=== PATIENT | male | born 1990 | race American Indian/Alaskan Native ===

== ENCOUNTER 2017-11-12 14:00 | Emergency (ER) | payer OTHER ==
[2017-11-12] MEDS ORDERED: ZOFRAN ONE (14:08)
[2017-11-12] MEDS ORDERED: VERSED IV ONE (14:08)
[2017-11-12] MEDS ORDERED: NACL 0.9% 1000 ML 1,000 ML IV ONE ×3 (14:09→15:53)
[2017-11-12] MEDS: VERSED IV NR ×2 (14:12→15:30)
[2017-11-12 14:38] LABS: Basophils % (Auto) 0.4 % (0.0-1.8); Eosinophils % (Auto) 0.1 % (0.0-4.3); Hemoglobin 15.9 gm/dl (11.8-15.2); Lymphocytes # (Auto) 0.8 K/mm3 (1.2-5.4); Lymphocytes % (Auto) 8.1 % (13.4-35.0); Mean Corpuscular HGB Conc 35 % (32-34); Mean Corpuscular Hemoglobin 31 pg (28-32); Mean Corpuscular Volume 90 fl (84-94); Monocytes # (Auto) 0.8 K/mm3 (0.0-0.8); Monocytes % (Auto) 7.8 % (0.0-7.3); Platelet Count 259 K/mm3 (140-440); Red Blood Count 5.14 M/mm3 (3.65-5.03); Red Cell Distribution Width 13.2 % (13.2-15.2)
[2017-11-12 14:50] LABS: INR 1.02 (0.87-1.13)
[2017-11-12 14:51] LABS: Partial Thromboplastin Time 30.6 Sec. (24.2-36.6)
--- NOTE | 2017-11-12 14:54 | Emergency Department Report ---
ED General Adult HPI - General Stated complaint: OVERDOSE/MH Time Seen by Provider: 11/12/17 14:07 Source: police, EMS Mode of arrival: Stretcher Limitations: No Limitations - History of Present Illness Initial comments: Patient was found by the [facility] with multi drug paraphernalia. They state he was eating some green leaves. Apparently he was acting somewhat delirious and was transported to this facility for medical evaluation. Upon arrival the patient was agitated and did require medication. He admitted to a mental health history. Later he told the nurse that he wanted to kill himself at the assisted. He stated that he just wanted to go to the assisted. He has no specific complaint. -: minutes(s), hour(s) - Related Data Home Medications Medication Instructions Recorded Confirmed Last Taken Unobtainable 11/12/17 11/12/17 Unknown Allergies Allergy/AdvReac Type Severity Reaction Status Date / Time methylphenidate Allergy Unknown Verified 11/12/17 14:45 [From Ritalin] ED Review of Systems ROS: Stated complaint: OVERDOSE/MH Other details as noted in HPI Comment: Unobtainable due to pts medical conditions (agitated and somewhat delirious but does not complain of pain shortness of breath or any other specific symptoms) ED Past Medical Hx - Past Medical History Previous Medical History?: Yes Hx Psychiatric Treatment: Yes Hx Asthma: Yes Additional medical history: ADHD, schziophernia, bipolar - Social History Smoking Status: Unknown if ever smoked Substance Use Type: Cocaine, Marijuana, Other - Medications Home Medications: Home Medications Medication Instructions Recorded Confirmed Last Taken Type Unobtainable 11/12/17 11/12/17 Unknown History ED Physical Exam - General Limitations: Altered Mental Status General appearance: alert, in no apparent distress - Head Head exam: Present: atraumatic, normocephalic - Eye Eye exam: Present: normal appearance, PERRL, EOMI. Absent: scleral icterus - ENT ENT exam: Present: mucous membranes moist - Neck Neck exam: Present: normal inspection. Absent: tenderness, meningismus - Respiratory Respiratory exam: Present: normal lung sounds bilaterally. Absent: respiratory distress - Cardiovascular Cardiovascular Exam: Present: regular rate, normal rhythm. Absent: systolic murmur, diastolic murmur, rubs, gallop - GI/Abdominal GI/Abdominal exam: Present: soft, normal bowel sounds. Absent: distended, tenderness, guarding, rebound, rigid - Rectal Rectal exam: Present: deferred - Extremities Exam Extremities exam: Present: normal inspection, full ROM, normal capillary refill. Absent: tenderness, calf tenderness - Back Exam Back exam: Present: normal inspection - Neurological Exam Neurological exam: Present: alert, oriented X3, CN II-XII intact. Absent: motor sensory deficit - Psychiatric Psychiatric exam: Present: agitated, anxious - Skin Skin exam: Present: warm, dry, intact, normal color. Absent: rash ED Course Vital Signs 11/12/17 11/12/17 11/12/17 13:54 14:00 14:08 Temperature 97.3 F L Pulse Rate 98 H 101 H Respiratory 21 Rate Blood Pressure 130/87 O2 Sat by Pulse 98 97 Oximetry 11/12/17 11/12/17 11/12/17 14:16 14:30 15:40 Temperature Pulse Rate 78 77 105 H Respiratory 8 L 44 H 20 Rate Blood Pressure 127/64 127/69 130/76 O2 Sat by Pulse 88 97 Oximetry - Reevaluation(s) Reevaluation #1: Given IV fluid. Multiple re-exams. The patient states that he is ready to go. He is awake alert and oriented 4. I spoke to the officer about his suicidal gesture. They are aware and will put him under suicide watch. They do have a medical infirmary and a physician. He is appropriate for transfer to the assisted. 11/12/17 18:09 ED Medical Decision Making - Lab Data Result diagrams: 11/12/17 14:22 11/12/17 14:22 Laboratory Results - last 24 hr 11/12/17 11/12/17 14:22 14:22 WBC 9.7 RBC 5.14 H Hgb 15.9 H Hct 46.0 H MCV 90 MCH 31 MCHC 35 H RDW 13.2 Plt Count 259 Lymph % (Auto) 8.1 L [place] % (Auto) 7.8 H Eos % (Auto) 0.1 Baso % (Auto) 0.4 Lymph # 0.8 L [place] # 0.8 Eos # 0.0 Baso # 0.0 Seg Neutrophils % 83.6 H Seg Neutrophils # 8.1 H PT 13.9 INR 1.02 APTT 30.6 Laboratory Results - last 24 hr 11/12/17 11/12/17 11/12/17 14:22 14:22 14:22 WBC 9.7 RBC 5.14 H Hgb 15.9 H Hct 46.0 H MCV 90 MCH 31 MCHC 35 H RDW 13.2 Plt Count 259 Lymph % (Auto) 8.1 L [place] % (Auto) 7.8 H Eos % (Auto) 0.1 Baso % (Auto) 0.4 Lymph # 0.8 L [place] # 0.8 Eos # 0.0 Baso # 0.0 Seg Neutrophils % 83.6 H Seg Neutrophils # 8.1 H PT 13.9 INR 1.02 APTT 30.6 Sodium 139 Potassium 3.8 Chloride 99.1 Carbon Dioxide 24 Anion Gap 20 BUN 13 Creatinine 0.9 Estimated GFR > 60 BUN/Creatinine Ratio 14 Glucose 99 Calcium 9.6 Total Bilirubin 0.80 Direct Bilirubin < 0.2 AST 29 ALT 14 Alkaline Phosphatase 79 Ammonia Total Creatine Kinase 532 H Troponin T < 0.010 Total Protein 7.5 Albumin 4.6 Albumin/Globulin Ratio 1.6 TSH Urine Color Urine Turbidity Urine pH Ur Specific [place] Urine Protein Urine Glucose (UA) Urine Ketones Urine Blood Urine Nitrite Urine Bilirubin Urine Urobilinogen Ur Leukocyte Esterase Urine WBC (Auto) Urine RBC (Auto) Urine Mucus Salicylates Urine Opiates Screen Urine Methadone Screen Acetaminophen Ur Barbiturates Screen Ur Phencyclidine Scrn Ur Amphetamines Screen U Benzodiazepines Scrn Urine Cocaine Screen U Marijuana (THC) Screen Drugs of Abuse Note Plasma/Serum Alcohol 11/12/17 11/12/17 11/12/17 14:22 14:22 14:22 WBC RBC Hgb Hct MCV MCH MCHC RDW Plt Count Lymph % (Auto) [place] % (Auto) Eos % (Auto) Baso % (Auto) Lymph # [place] # Eos # Baso # Seg Neutrophils % Seg Neutrophils # PT INR APTT Sodium Potassium Chloride Carbon Dioxide Anion Gap BUN Creatinine Estimated GFR BUN/Creatinine Ratio Glucose Calcium Total Bilirubin Direct Bilirubin AST ALT Alkaline Phosphatase Ammonia 58.0 Total Creatine Kinase Troponin T Total Protein Albumin Albumin/Globulin Ratio TSH 2.330 Urine Color Urine Turbidity Urine pH Ur Specific [place] Urine Protein Urine Glucose (UA) Urine Ketones Urine Blood Urine Nitrite Urine Bilirubin Urine Urobilinogen Ur Leukocyte Esterase Urine WBC (Auto) Urine RBC (Auto) Urine Mucus Salicylates < 0.3 L Urine Opiates Screen Urine Methadone Screen Acetaminophen Ur Barbiturates Screen Ur Phencyclidine Scrn Ur Amphetamines Screen U Benzodiazepines Scrn Urine Cocaine Screen U Marijuana (THC) Screen Drugs of Abuse Note Plasma/Serum Alcohol 11/12/17 11/12/17 11/12/17 14:22 14:22 15:46 WBC RBC Hgb Hct MCV MCH MCHC RDW Plt Count Lymph % (Auto) [place] % (Auto) Eos % (Auto) Baso % (Auto) Lymph # [place] # Eos # Baso # Seg Neutrophils % Seg Neutrophils # PT INR APTT Sodium Potassium Chloride Carbon Dioxide Anion Gap BUN Creatinine Estimated GFR BUN/Creatinine Ratio Glucose Calcium Total Bilirubin Direct Bilirubin AST ALT Alkaline Phosphatase Ammonia Total Creatine Kinase Troponin T Total Protein Albumin Albumin/Globulin Ratio TSH Urine Color Yellow Urine Turbidity Clear Urine pH 5.0 Ur Specific [place] 1.017 Urine Protein 30 mg/dl Urine Glucose (UA) 50 Urine Ketones Tr Urine Blood Sm Urine Nitrite Neg Urine Bilirubin Neg Urine Urobilinogen < 2.0 Ur Leukocyte Esterase Neg Urine WBC (Auto) 4.0 Urine RBC (Auto) 1.0 Urine Mucus Few Salicylates Urine Opiates Screen Urine Methadone Screen Acetaminophen < 15.0 Ur Barbiturates Screen Ur Phencyclidine Scrn Ur Amphetamines Screen U Benzodiazepines Scrn Urine Cocaine Screen U Marijuana (THC) Screen Drugs of Abuse Note Plasma/Serum Alcohol < 0.01 11/12/17 15:46 WBC RBC Hgb Hct MCV MCH MCHC RDW Plt Count Lymph % (Auto) [place] % (Auto) Eos % (Auto) Baso % (Auto) Lymph # [place] # Eos # Baso # Seg Neutrophils % Seg Neutrophils # PT INR APTT Sodium Potassium Chloride Carbon Dioxide Anion Gap BUN Creatinine Estimated GFR BUN/Creatinine Ratio Glucose Calcium Total Bilirubin Direct Bilirubin AST ALT Alkaline Phosphatase Ammonia Total Creatine Kinase Troponin T Total Protein Albumin Albumin/Globulin Ratio TSH Urine Color Urine Turbidity Urine pH Ur Specific [place] Urine Protein Urine Glucose (UA) Urine Ketones Urine Blood Urine Nitrite Urine Bilirubin Urine Urobilinogen Ur Leukocyte Esterase Urine WBC (Auto) Urine RBC (Auto) Urine Mucus Salicylates Urine Opiates Screen Presumptive negative Urine Methadone Screen Presumptive negative Acetaminophen Ur Barbiturates Screen Presumptive negative Ur Phencyclidine Scrn Presumptive negative Ur Amphetamines Screen Presumptive positive U Benzodiazepines Scrn Presumptive positive Urine Cocaine Screen Presumptive positive U Marijuana (THC) Screen Presumptive positive Drugs of Abuse Note Disclamer Plasma/Serum Alcohol Critical Care Time: Yes Critical care time in (mins) excluding proc time.: 70 Critical care attestation.: If time is entered above; I have spent that time in minutes in the direct care of this critically ill patient, excluding procedure time. ED Disposition Clinical Impression: Polysubstance abuse, Suicidal ideation, Delirium Bipolar disorder Qualifiers: Active/Remission status: currently active Current bipolar episode type: manic Current episode severity: moderate Qualified Code(s): F31.12 - Bipolar disorder , current episode manic without psychotic features, moderate Disposition: DC-01 TO HOME OR SELFCARE Is pt being admited?: No Does the pt Need Aspirin: No Condition: Stable Instructions: Polysubstance Abuse (ED), Bipolar Disorder (ED), Suicide Prevention for Adults (ED) Additional Instructions: Patient requires placement with medical observation in the assisted and suicide watch. It is important that he continues to take fluids and has his vital signs monitored. Further medical care at the assisted is indicated. Return to the emergency department if there are any issues. Referrals: PRIMARY CARE [Primary Care Provider] - 3-5 Days Time of Disposition: 18:12
[2017-11-12 15:00] LABS: Alanine Aminotransferase 14 units/L (7-56); Albumin 4.6 g/dL (3.9-5); BUN/Creatinine Ratio 14; Blood Urea Nitrogen 13 mg/dL (9-20); Calcium 9.6 mg/dL (8.4-10.2); Hemolysis Index 6
[2017-11-12 15:07] LABS: Bilirubin,Direct < 0.2 mg/dL (0-0.2)
[2017-11-12] MEDS ORDERED: ZOFRAN IV ONE (15:11)
[2017-11-12] MEDS ORDERED: GEODON IM ONE (15:26)
[2017-11-12] MEDS ORDERED: GEODON IM PRN (15:26)
[2017-11-12] MEDS ORDERED: VERSED IV NR (16:00)
[2017-11-12 16:09] LABS: Bilirubin,Urine NEG (Negative); Blood,Urine SM (Negative); Color,Urine Yellow (Yellow); Mucus,Urine FEW /HPF; Urobilinogen,Urine < 2.0 mg/dL (<2.0)
[2017-11-12 16:36] LABS: Methadone Screen,Urine PRESUMPTIVE NEGATIVE; Opiate Screen,Urine PRESUMPTIVE NEGATIVE
[2017-11-12 16:51] LABS: Amphetamine Screen,Urine PRESUMPTIVE POSITIVE; Benzodiazepines Screen,Urine PRESUMPTIVE POSITIVE; Cannabinoid Screen,Urine PRESUMPTIVE POSITIVE; Cocaine Screen,Urine PRESUMPTIVE POSITIVE
[2017-11-12 19:09] VITALS: BP 104/45
== END 2017-11-12 18:30 | disposition home or self-care (01) ==
LOC: ED 14:00
DX: F31.12 Bipolar disorder, current episode manic without psychotic features, moderate (principal); F15.10 Other stimulant abuse, uncomplicated; F13.10 Sedative, hypnotic or anxiolytic abuse, uncomplicated; F14.10 Cocaine abuse, uncomplicated; F12.10 Cannabis abuse, uncomplicated; J45.909 Unspecified asthma, uncomplicated; F20.9 Schizophrenia, unspecified; F90.9 Attention-deficit hyperactivity disorder, unspecified type; Z88.8 Allergy status to other drugs, medicaments and biological substances; Z79.899 Other long term (current) drug therapy
CPT/HCPCS: 36415; 80048; 80074; 80307; 81001; 82140; 82550; 84443; 84484; 85025; 85610; 85730; 96361; 96372; 96374; 96375; 96376; 99291; G0480; J2250; J2405; J3486; J7030; 80320